=== PATIENT | female | born 1945 | race Caucasian/White ===

== ENCOUNTER 2017-11-29 07:57 | Emergency (ER) | payer MEDICARE, BC ==
--- NOTE | 2017-11-29 08:19 | ED Physician Documentation ---
PD HPI UPPER EXT INJURY - Stated complaint Stated Complaint: RT MID FING INJURY - Chief complaint Chief Complaint: Trauma Ext - History obtained from History obtained from: Patient, Family - History of Present Illness Location: Right, Finger (middle) Type of injury: Fall Where injury occurred: Park Timing - onset: Yesterday Timing - duration: Hours Timing - details: Abrupt onset, Still present Improved by: Rest Worsened by: Moving, Palpating Associated symptoms: Swelling, Discolored. No: Weakness, Numbness Contributing factors: No: Anticoagulated Similar symptoms before: Has not had sx before Recently seen: Not recently seen - Additonal information Additional information: 72-year-old female who is visiting here from [place] fell yesterday while hiking and injured her the tip of her right middle finger. She is not able to fully extend this and has swelling and ecchymosis over the dorsal aspect. She has a wedding to go to at 11 AM. Review of Systems Constitutional: denies: Fever Eyes: denies: Decreased vision Ears: denies: Ear pain Nose: denies: Congestion Throat: denies: Sore throat Respiratory: denies: Cough GI: denies: Vomiting PD PAST MEDICAL HISTORY - Allergies Allergies/Adverse Reactions: Allergies Allergy/AdvReac Type Severity Reaction Status Date / Time sulfamethoxazole Allergy Unknown Verified 11/29/17 08:13 [From Bactrim] trimethoprim [From Bactrim] Allergy Unknown Verified 11/29/17 08:13 PD ED PE NORMAL - Vitals Vital signs reviewed: Yes (hypertensive ) - General General: Alert and oriented X 3, No acute distress, Well developed/nourished - HEENT HEENT: Atraumatic, PERRL, EOMI - Respiratory Respiratory: No respiratory distress - Derm Derm: Normal color, Warm and dry, No rash - Extremities Extremities: Other (There is deformity with swelling and ecchymosis to the dorsum of the right middle finger DIP. This appears to be a mallet finger and she is unable to fully extend the finger. 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, No motor deficit, No sensory deficit, Normal speech Eye Opening: Spontaneous Motor: Obeys Commands Verbal: Oriented GCS Score: 15 - Psych Psych: Normal mood, Normal affect Results - Vitals Vitals: Vital Signs - 24 hr 11/29/17 08:10 Temperature 36.5 C Heart Rate 71 Respiratory 14 Rate Blood Pressure 149/84 H O2 Saturation 99 Oxygen O2 Source Room air - Rads (name of study) right hand Radiology: Prelim report reviewed (Impression: Acute 3 mm intra-articular avulsion fracture from the dorsal base of the distal phalanx of the right third finger.), EMP read indepedently, See rad report PD MEDICAL DECISION MAKING - ED course Complexity details: reviewed results, re-evaluated patient, considered differential, d/w patient, d/w family ED course: 72-year-old female with a fall last date has a fracture of the dorsal aspect of the distal flange of the third finger on the right hand. She is instructed to obtain a Stax splint and instructed in its use. I suspect she will do well with conservative therapy. - Sepsis Event Vital Signs: Vital Signs - 24 hr 11/29/17 08:10 Temperature 36.5 C Heart Rate 71 Respiratory 14 Rate Blood Pressure 149/84 H O2 Saturation 99 Oxygen O2 Source Room air Departure - Departure Disposition: 01 Home, Self Care Clinical Impression: Mallet finger of right hand Finger fracture, right Qualifiers: Encounter type: initial encounter Finger: middle finger Fracture type: closed Phalanx: distal Fracture alignment: displaced Qualified Code(s): S62.632A - Displaced fracture of distal phalanx of right middle finger, initial encounter for closed fracture Condition: Stable Instructions: ED Fx Mallet Finger Follow-Up: Your, doctor [Other] Comments: Obtain a Stax splint at the local drugstore and wear it continuously. Follow- up with your regular doctor when you return home.
--- NOTE | 2017-11-29 08:43 | XRAY Report ---
Reason: middle finger mallet Procedure Date: 11/29/2017 Accession Number: [id number] / [id number] Procedure: XR - Hand 3 View RT CPT Code: FULL RESULT: EXAM: RIGHT HAND RADIOGRAPHY EXAM DATE: 11/29/2017 08:26 AM. CLINICAL HISTORY: Middle finger mallet. Fall, jamming the distal third digit yesterday. COMPARISON: None. TECHNIQUE: 3 views. FINDINGS: Bones: There is an acute 3 mm intra-articular avulsion fracture from the dorsal base of the distal phalanx of the right third finger. No other fracture or focal bone lesion is identified. Joints: Minimal flexion at the third DIP joint. No subluxation. No joint space narrowing. Soft Tissues: Mild soft tissue swelling at the third distal phalanx. IMPRESSION: Acute 3 mm intra-articular avulsion fracture from the dorsal base of the distal phalanx of the right third finger. [facility]
[2017-11-29 09:28] VITALS: BP 138/78
== END 2017-11-29 09:31 | disposition home or self-care (01) ==
LOC: ED 07:57
DX: M20.011 Mallet finger of right finger(s) (principal); S62.632A Displaced fracture of distal phalanx of right middle finger, initial encounter for closed fracture; W19.XXXA Unspecified fall, initial encounter; Y93.01 Activity, walking, marching and hiking; Y92.830 Public park as the place of occurrence of the external cause
CPT/HCPCS: 99282; 99283